=== PATIENT | female | born 1960 | race Asian ===

== ENCOUNTER → 2017-01-05 | Outpatient (CLI) | payer BC | LOC: FIMAGING 07:55 | PROVIDERS: ATTEND Family Medicine | DX: Z12.31 Encounter for screening mammogram for malignant neoplasm of breast (principal) | CPT/HCPCS: G0202 ==

== ENCOUNTER → 2018-03-20 | Outpatient (CLI) | payer OTHER | LOC: FIMAGING 15:19 | PROVIDERS: ATTEND Family Medicine | DX: Z12.31 Encounter for screening mammogram for malignant neoplasm of breast (principal) ==

== ENCOUNTER → 2018-09-16 | Outpatient (CLI) | payer OTHER | LOC: FIMAGING 09:09 ==